=== PATIENT | male | born 1980 | race Caucasian/White ===

== ENCOUNTER 2023-07-22 10:22 | Emergency (ER) | payer SELFPAY ==
[2023-07-22 10:22] VITALS: BP 133/92; PULSE 87; RESP 14; TEMP 36.3; O2SAT 98; BMI 30.1
--- NOTE | 2023-07-22 10:39 | ED.VIS.LOWEX ---
HPI History of Present Illness Chief Complaint: Lower Extremity Injury Informant: patient Narrative Narrative: 43-year-old male presenting with 3 weeks of pain of the great toe and distal foot. 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 Since that time he has had redness of the great toe and pain of the toe up onto the dorsum of the foot particularly the first and second MTP joints. Patient states that he feels a burning like sensation. He denies any significant medical problems. He states diabetes does run in his family. Currently takes no medications. No history of gout or pseudogout. He notes pain with attempted movement of the great toe. He states that he does move it is limited which he thinks may be due to the swelling. He denies any recent breaks in the skin. He does noted abrasion at the right ankle which she states came after his symptoms began. PFSH PFSH Medical History no medical history no medical history Home Medications cephalexin 500 mg capsule 500 mg PO Q6 #40 CAPSULES 07/22/23 [Rx Last Taken Unknown] ibuprofen 600 mg tablet 600 mg PO Q6H #21 TABLETS 07/22/23 [Rx Last Taken Unknown] oxycodone-acetaminophen 5 mg-325 mg tablet 1 tab PO Q6H PRN PRN Pain 3 days #12 TABLETS 07/22/23 [Rx Last Taken Unknown] Allergy/AdvReac Type Severity Reaction Status Date / Time No Known Allergies Allergy Verified 07/22/23 10:22 Social History Smoking Status: Never smoker ROS ROS ED Constitutional Constitutional ED: Denies chills or weight loss Eyes Eyes: Denies change in vision or diplopia ENT ENT ED: Denies ear pain, rhinorrhea or sore throat Cardiovascular Cardiovascular: Denies chest pain, orthopnea, palpitations or racing heartbeat Respiratory/Chest Respiratory/Chest: Denies cough, dyspnea or orthopnea Gastrointestinal Gastrointestinal: Denies abdominal pain, diarrhea, nausea or vomiting Genitourinary Genitourinary ED: Denies dysuria, hematuria or urinary frequency Musculoskeletal Musculoskeletal: Reports other Details: See history of present illness ; Denies arthralgias or myalgias Integumentary Denies abscess or rash Neurologic Neurologic: Denies headache(s) or weakness Psychiatric Psychiatric: Denies anxiety, depression, suicidal ideation or suicidal thoughts Endocrine Endocrinology: Denies polydipsia, polyphagia or polyuria Allergic/Immunologic Allergic/Immunologic ED: Denies mouth swelling, tongue swelling or urticaria EXAM Physical Exam Const Vital Signs: 07/22/23 10:22 Temperature 97.3 F L Temperature Source Temporal Pulse Rate 87 Respiratory Rate 14 Blood Pressure 133/92 H Blood Pressure Mean 105 Pulse Ox 98 Oxygen Delivery Method Room Air Positive well nourished and well developed General Appearance ED: well developed HEENT Reports normocephalic, head/scalp atraumatic and moist mucous membranes Eyes PERRL and EOMs intact bilaterally Neck no lymphadenopathy, supple and no JVD Resp normal respiratory effort and clear to auscultation bilaterally Cardio regular rate, regular rhythm and no murmurs GI normal to inspection, nondistended, normoactive bowel sounds and non-tender Palpation: soft Back/Spine no CVA tenderness and normal ROM Extremity Extremity Narrative: Examination of the foot shows that the great toe is swollen and erythematous. The erythema does spare the distal tip of the toe. I do not see paronychia or felon. He is able to have some movement though limited secondary to pain/swelling. The erythema extends up onto the dorsum of the foot particularly around the first MTP joint and over onto the second MTP joint. I do not appreciate any ecchymosis. Mild tenderness to palpation. Mild warmth. No lymphangitic streaking. Patient appears neurovascularly intact. Plantar surface with no obvious foreign bodies or recent breaks in the skin. Neuro oriented x3 and CN's II-XII intact bilaterally Sensorium / Orientation: alert Motor Exam: strength 5/5 throughout Psych mental status grossly normal Mood & Affect: Negative for depressed or tearful Skin no rashes or lesions noted and no wounds MDM MDM MDM Narrative Medical decision making narrative: Differential diagnosis includes fracture or tendon rupture cellulitis gout pseudogout other inflammatory arthropathies My independent interpretation of the plain films of the right foot is no acute fracture. White count slightly elevated 11.5. CRP 9.44 ESR 33 uric acid 7.6. Creatinine 1.06. Clinically I be more concerned with gout but I cannot rule out cellulitis. Will place him on scheduled anti-inflammatories and we discussed gout diet. Hesitant to use any prednisone with the possibility of cellulitis. I will also place him on Keflex for coverage and have him follow-up with podiatry. Patient understands the plan and the diagnostic conundrum. He notes return instructions. History & Record Review Discussion w/independent historian: Patient Lab Data Attestation: I reviewed the patient's lab results. Labs: Laboratory Results - last 24 hr 07/22/23 10:45 WBC 11.5 H RBC 5.12 Hgb 15.3 Hct 45.6 MCV 89.1 MCH 29.9 MCHC 33.6 RDW Std Deviation 37.4 RDW Coeff of Chip 11.6 Plt Count 344 MPV 9.9 Immature Gran % (Auto) 0.500 Neut % (Auto) 62.3 Lymph % (Auto) 24.8 [place] % (Auto) 7.7 Eos % (Auto) 3.4 Baso % (Auto) 1.3 H Absolute Neuts (auto) 7.2 Absolute Lymphs (auto) 2.85 Nucleated RBC % 0 ESR 33 H Sodium 138 Potassium 4.1 Chloride 105 Carbon Dioxide 26.0 Anion Gap 7 BUN 12 Creatinine 1.06 Estim Creat Clear Calc 117.53 Est GFR (MDRD) Af Amer 97 Est GFR (MDRD) Non-Af 80 BUN/Creatinine Ratio 11.3 Glucose 170 H Uric Acid 7.6 H Calcium 9.2 C-React Prot Ext Range 9.44 H Radiography Diagnostic Testing: Clinical Impression(s) from Imaging Studies Foot X-Ray 07/22/23 11:00 IMPRESSION: Plantar spur. No fracture is seen. Electronically Signed: William Man MD at 11:19 EDT , Discharge Plan Triage Chief Complaint: Lower Extremity Injury ED Provider: Yimi Villa Dx/Rx/DC Orders Clinical Impression: Gout, Acute pain of right foot Instructions: ED Gout, ED Gout Diet Prescriptions: New oxycodone-acetaminophen [oxycodone-acetaminophen] 5-325 mg tablet 1 tab PO Q6H PRN PRN (Reason: Pain) 3 Days Qty: 12 0RF cephalexin [cephalexin] 500 mg capsule 500 mg PO Q6 Qty: 40 0RF ibuprofen 600 mg tablet 600 mg PO Q6H Qty: 21 0RF Primary Care Provider: Care Physician,No Primary Referrals: Yimi Moran DPM [Med Staff - Active Staff] - 1 Week Vlad Crespo MD [Non-Staff] - Disposition Disposition: Home, Self Care
--- NOTE | 2023-07-22 11:00 | RAD_ITS ---
STUDY: X-RAY - RIGHT FOOT CLINICAL: Male, 43 years old. Injury and pain -- attn first MCP/great toe TECHNIQUE: 3 view(s) of the foot. COMPARISON: None. FINDINGS: There is a plantar calcaneal spur. Normal visualized subtalar, talonavicular, calcaneocuboid, tarsal and tarsometatarsal articulations. Normal metatarsi. Normal metatarsophalangeal joint of the great toe. Normal tibial and fibular sesamoid bones. Normal interphalangeal joint of the great toe. Normal phalanges of the great toe. Normal second through fifth metatarsophalangeal joints. Normal interphalangeal joints and phalanges of the lesser toes. The soft tissue structures are unremarkable. RAD/Foot min 3 Views IMPRESSION: Plantar spur. No fracture is seen. Electronically Signed: William Man MD at 11:19 EDT ,
[2023-07-22 11:02] LABS: Absolute Lymphocyte Count 2.85 X10^3/uL (0.83-4.51); Absolute Neutrophil Count 7.2 X10^3/uL (2.0-7.7); Basophil# 0.15 X10^3/uL; Basophil% 1.3 % (0-1); Eosinophil# 0.39 X10^3/uL; Eosinophils% 3.4 % (0-5); Hematocrit 45.6 % (40-54); Hemoglobin 15.3 g/dL (13.0-16.5); Lymphocyte # 2.85 X10^3/ul (0.83-4.51); Lymphocyte % 24.8 % (19-41); Mean Corp Hgb Conc 33.6 g/dL (32-36); Mean Corpuscular Hgb 29.9 pg (27.0-32.0); Mean Corpuscular Volume 89.1 fL (80-94); Mean Platelet Vol. 9.9 fl (6.2-12.0); Monocyte# 0.88 X10^3/uL; Monocyte% 7.7 % (0-10); NRBC Flagged by Analyzer 0 % (0-5); Neutrophil # 7.15 X10^3/uL (2.7-7.7); Neutrophil % 62.3 % (47-70); Platelet Count 344 K/mm3 (150-450); RBC Distribution Width CV 11.6 % (11.6-14.6); RBC Distribution Width SD 37.4 fl (35.1-43.9); Red Blood Count 5.12 M/mm3 (4.6-6.2); White Blood Count 11.5 K/mm3 (4.4-11.0)
[2023-07-22 11:19] LABS: Anion Gap 7 (5-15); BUN 12 mg/dL (7-18); BUN/Creat Ratio 11.3 RATIO (10-20); Calcium,Total 9.2 mg/dL (8.5-10.1); Chloride 105 mmol/L (98-107); Creatinine, Serum 1.06 mg/dL (0.70-1.30); EST Glomerular Filtration Rate 80 mL/min (>60); Est Glom Filt Rate - Afr Amer 97 mL/min (>60); Estimated Creatinine Clearance 117.53 ml/min; Glucose 170 mg/dL (74-106); Potassium 4.1 mmol/L (3.5-5.1); Sodium Level 138 mmol/L (136-145)
[2023-07-22 11:42] LABS: CRP 9.44 mg/L (0.0-3.0); Uric Acid 7.6 mg/dL (3.5-7.2)
[2023-07-22 11:49] LABS: Erythrocyte Sedimentation Rate 33 mm/hr (0-20)
== END 2023-07-22 12:17 | disposition home or self-care (01) ==
PROVIDERS: Emergency Provider Emergency Medicine; Visit Provider Emergency Medicine
DX: M79.671 Pain in right foot (principal); M10.071 Idiopathic gout, right ankle and foot; W18.49XA Other slipping, tripping and stumbling without falling, initial encounter; Y93.89 Activity, other specified; Y92.89 Other specified places as the place of occurrence of the external cause
CPT/HCPCS: 73630; 80048; 84550; 85025; 85652; 86140; 99284; A4216